=== PATIENT | male | born 1935 | race Caucasian/White ===

== ENCOUNTER → 2024-02-04 | Outpatient (CLI) | payer MEDICARE, BC | LOC: M PLAIMG 12:17 | PROVIDERS: ATTEND Internal Medicine Cardiovascular Disease | DX: I71.40 Abdominal aortic aneurysm, without rupture, unspecified (principal); K40.20 Bilateral inguinal hernia, without obstruction or gangrene, not specified as recurrent; N62 Hypertrophy of breast ==

== ENCOUNTER → 2024-02-10 | Outpatient (CLI) | payer MEDICARE, BC | LOC: M CARPUL 09:56 → EDUNIT# 10:00 | PROVIDERS: ATTEND Internal Medicine Cardiovascular Disease | DX: R06.09 Other forms of dyspnea (principal) ==

== ENCOUNTER → 2024-08-15 | Outpatient (CLI) | payer MEDICARE, BC ==
[~2024-08-15] MED LIST: METHACHOLINE KIT (6 VIAL.NEB PREMIX) INH ONE
== END ==
LOC: M CARPUL 12:32
PROVIDERS: ATTEND Internal Medicine Pulmonary Disease
DX: R06.02 Shortness of breath (principal)

== ENCOUNTER 2025-02-14 10:29 | Day surgery (SDC) | payer MEDICARE, BC ==
[~2025-02-14] VITALS: Ht 167.6 cm; Wt 83.5 kg
[~2025-02-14 10:29] MED LIST changes: +BREO1INH INH; +BUME1TAB3 PO; +CLOP75TA2 PO; +ELIQ5TAB PO; +ENTR1TAB7 PO; +FARX1TAB3 PO; +FINA5TAB2 PO; +LIDOCAINE 3.5% 1 ML OPHTH TOPICAL GEL OU ONE; -METHACHOLINE KIT (6 VIAL.NEB PREMIX) INH ONE; +ROSU40TA81 PO; +TAMS1CAP17 PO; +VIBE75TA PO
[2025-02-14] MEDS: POVIDONE-IODINE 5% OPHTH PREP SOL 30ML As Ordered ONE (15:02)
[2025-02-14] MEDS: LIDOCAINE 2% W/EPINEPHrine 20 ML VIAL **PRES FREE As Ordered ONE (15:05)
[2025-02-14] MEDS: LIDOCAINE 1% SDV 5 ML VIAL As Ordered ONE (15:09)
[2025-02-14] MEDS: TOBRADEX OPHTH OINT 3.5 GM As Ordered ONE (15:22)
[2025-02-14 15:35] VITALS: BP 125/60; TEMP 97.4; O2SAT 98
== END 2025-02-14 15:50 | disposition home or self-care (01) ==
LOC: M SDC 10:29
PROVIDERS: ATTEND Ophthalmology
DX: H02.105 Unspecified ectropion of left lower eyelid (principal); I10 Essential (primary) hypertension; E78.00 Pure hypercholesterolemia, unspecified; G47.30 Sleep apnea, unspecified; Z79.899 Other long term (current) drug therapy; Z79.01 Long term (current) use of anticoagulants; Z79.02 Long term (current) use of antithrombotics/antiplatelets; Z95.0 Presence of cardiac pacemaker; Z95.1 Presence of aortocoronary bypass graft; Z95.2 Presence of prosthetic heart valve; Z87.891 Personal history of nicotine dependence
CPT/HCPCS: 67917; J3010

== ENCOUNTER → 2025-03-16 | Outpatient (CLI) | payer MEDICARE, BC ==
[~2025-03-16] MED LIST changes: -LIDOCAINE 3.5% 1 ML OPHTH TOPICAL GEL OU ONE
== END ==
LOC: M RAD 10:43
PROVIDERS: ATTEND Physician Assistant
DX: I71.40 Abdominal aortic aneurysm, without rupture, unspecified (principal)